=== PATIENT | female | born 1950 | race African-American/Black ===

== ENCOUNTER 2016-08-18 18:38 | Observation (INO) | payer MEDICAID ==
[~2016-08-18] VITALS: Ht 172.7 cm; Wt 68.0 kg
[~2016-08-18 18:38] MED LIST: ALBUAER3 INH; AMLO10TA2 PO; ASPI-110 PO; BENZ2TAB PO; CARV3.125 PO; GABA300C5 PO; GLIP10TA6 PO; HYDR1CAP30 PO; LURA1TAB2 PO; WALKER/ADULT/FO1 MIS
[2016-08-18 18:42] VITALS: BP 202/80; PULSE 85; RESP 20; TEMP 99.3; O2SAT 97
[2016-08-18 18:49] VITALS: O2SAT 95
--- NOTE | 2016-08-18 18:58 | PD ---
HPI Chief Complaint: Fall Time Seen by Provider: 18:44 Travel History International Travel<30 days: No Contact w/Intl Traveler<30days: No Traveled to known affect area: No History of Present Illness HPI 65-year-old female with history of HIV, hepatitis, COPD here with injuries after a fall. Patient is here now for the fifth time this month with closed head injury from a mechanical fall. Patient has frequent falls at home and apparently tripped this evening, hitting her head. EMS note laceration through the left eyebrow. No LOC. Patient denies any headache, nausea vomiting, neck or back pain. States that she just has an unsteady gait. Apparently she has been attempting to get a walker, but has not been able to do so. She denies any chest pain, shortness of breath, urinary symptoms. 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) Headaches: No Hepatitis: Yes ( HEP C) Hiatal Hernia: No Hypertension: Yes Immune Disorder: No Implanted Vascular Access Dvce: No Kidney Stones: No Medical other: Yes ( LIVER DISEASE) Musculoskeletal: Yes Neurologic: No Psychiatric: Yes (Tardive dyskinesia ) Reproductive: No Respiratory: Yes (COPD) Migraines: No Myocardial Infarction: No Radiation Therapy: No Renal Failure: No Seizures: No Sickle Cell Disease: No Sleep Apnea: No Thyroid Disease: No Ulcer: Yes ?: Not Menopausal: Yes : 6 Para: 1 Miscarriage: 5 : 0 Tubal Ligation: Yes Past Surgical History Abdominal Surgery: Yes (ADHESIONS ON BLADDER) AICD: No Appendectomy: No Arteriovenous Shunt: No Cardiac Surgery: No Cholecystectomy: No Coronary Artery Bypass Graft: No Ear Surgery: No Endocrine Surgery: No Eye Surgery: No Genitourinary Surgery: Yes ( URETHRAL DILATATION ) Gynecologic Surgery: Yes (BILATERAL BREASTS) Hysterectomy: No Insulin Pump: No Joint Replacement: No Neurologic Surgery: No Oral Surgery: No Pacemaker: No Thoracic Surgery: No Other Surgery: Yes (SPINAL) Social History Alcohol Use: No Tobacco Use: Yes ( 08/19 ppd) Substance Use: Yes (COCAINE) Allergies-Medications (Allergen,Severity, Reaction): Coded Allergies: HA Inhibitors (Verified Allergy, Severe, 08/18/16) Angioedema Contrast Media (Verified Allergy, Severe, WELTS, 08/18/16) Dye, Prep (Verified Allergy, Severe, HIVES, 08/18/16) IVP DYE Iohexol (OMNIPAQUE) (Verified Allergy, Unknown, NEEDS TO BE PREMEDICATED. , 08/18/16) *MDRO Multi-Drug Resistant Organism (Verified Adverse Reaction, Unknown, ) MRSA, wound (05/01) MRSA PCR Screen negative 12/19/14 and 01/16/15. Cleared per Infection Control Reported Meds & Prescriptions Reported Meds & Active Scripts Active Walker/Adult/Folding (Device) 1 Mis Mis 1 Ea .ROUTE DIRECTED Gabapentin 300 Mg Cap 300 Mg PO TID Coreg (Carvedilol) 3.125 Mg Tab 3.125 Mg PO Q12HR Proair Hfa 8.5 GM Inh (Albuterol Sulfate) 90 Mcg/Act Aer 2 Puff INH Q4-6H PRN 108 mcg/actuation Reported Amlodipine (Amlodipine Besylate) 10 Mg Tab 10 Mg PO DAILY Latuda (Lurasidone) 60 Mg Tab 60 Mg PO HS Benztropine (Benztropine Mesylate) 2 Mg Tab 2 Mg PO HS Hydroxyzine Pamoate 25 Mg Cap 25 Mg PO BID Aspirin 81 (Aspirin) 81 Mg Tabdr 81 Mg PO DAILY Glipizide 10 Mg Tab 10 Mg PO DAILY Take 30 minutes before a meal Review of Systems Except as stated in HPI: all other systems reviewed are Neg Physical Exam Narrative GENERAL: Elderly female in no acute distress SKIN: Warm and dry. HEAD: Superficial laceration to the left eyebrow Normocephalic. EYES: Pupils equal and round. No scleral icterus. No injection or drainage. ENT: No nasal bleeding or discharge. Mucous membranes pink and moist. NECK: Supple CARDIOVASCULAR: Regular rate and rhythm. No murmur appreciated. RESPIRATORY: No accessory muscle use. Clear to auscultation. Breath sounds equal bilaterally. GASTROINTESTINAL: Abdomen soft, non-tender, nondistended. MUSCULOSKELETAL: Moves all extremity's normally. No midline tenderness palpation of the thoracic or lumbar spine NEUROLOGICAL: Awake and alert. Answers questions and follows commands appropriately. Unsteady gait Data Data Last Documented VS Vital Signs Date Time Temp Pulse Resp B/P Pulse Ox O2 Delivery O2 Flow Rate FiO2 08/18/16 18:49 95 Room Air 08/18/16 18:42 99.3 85 20 202/[address] Brain W/O Iv Contrast(Rout) (08/18/16 ) Basic Metabolic Panel (Bmp) (08/18/16 18:46) Complete Blood Count With Diff (08/18/16 18:46) Urinalysis - C+S If Indicated (08/18/16 18:46) Iv Access Insert/Monitor (08/18/16 18:46) Ecg Monitoring (08/18/16 18:46) Oximetry (08/18/16 18:46) Sodium Chloride 0.9% Flush (Ns Flush) (08/18/16 19:00) Cath For Specimen (08/18/16 18:46) MDM Medical Decision Making Medical Screen Exam Complete: Yes Emergency Medical Condition: Yes Medical Record Reviewed: Yes Differential Diagnosis 65-year-old female here for her eighth visit in the last 2 months with injuries from a fall, closed head injury. Patient has had 7 head CTs in the last 2 months due to these injuries. She clearly has chronic unsteady gait, and is not safe to be living in a home situation independently as she is. She describes her fall as mechanical. Differential includes closed head injury, skull fracture, ICH, eyebrow laceration, elect to light abnormality, UTI, failure to thrive, frequent falls. Narrative Course Patient placed on monitor, IV established and blood obtained. CBC, BMP, urinalysis and CT of the brain were ordered. Results remain pending at the time this dictation. Patient signed out to oncoming provider waiting results of same. I spoke with case management. Patient will require admission for physical therapy and likely placement. Diagnosis Primary Impression: Closed head injury Qualified Code: S09.90XA - Closed head injury, initial encounter Additional Impressions: Eyebrow laceration Qualified Code: S01.112A - Eyebrow laceration, left, initial encounter Recurrent falls Unsteady gait Admitting Information Admitting Physician Requests: Admit Alka Brown MD Aug 18, 2016 18:57
[2016-08-18 19:00] VITALS: BP 164/82; PULSE 85; O2SAT 97
[2016-08-18] MEDS ORDERED: SODIUM CHLORIDE 0.9% FLUSH 5 ML FLUSH IVF PRN (19:00)
[2016-08-18 19:28] LABS: AUTOMATED NEUTROPHIL # 6.2 TH/MM3 (1.8-7.7); BASOPHIL # 0.1 TH/MM3 (0-0.2); BASOPHIL % 0.7 % (0.0-2.0); EOSINOPHIL # 0.3 TH/MM3 (0-0.4); EOSINOPHIL % 3.1 % (0.0-4.0); HEMATOCRIT 37.8 % (35.0-46.0); LYMPH % 28.3 % (9.0-44.0); LYMPHOCYTE # 2.9 TH/MM3 (1.0-4.8); MEAN CELL VOLUME 93.8 FL (80.0-100.0); MEAN CORPUSCULAR HEMOGLOBIN 31.7 PG (27.0-34.0); MEAN CORPUSCULAR HGB CONC 33.8 % (32.0-36.0); MONO % 7.1 % (0.0-8.0); NEUT % 60.8 % (16.0-70.0); PLATELET COUNT 262 TH/MM3 (150-450); RED BLOOD COUNT 4.03 MIL/MM3 (4.00-5.30); WHITE BLOOD COUNT 10.2 TH/MM3 (4.0-11.0)
[2016-08-18 19:29] LABS: HEMO FLAGS DIFF FINAL
--- NOTE | 2016-08-18 19:33 | RADRPT ---
EXAM DATE/TIME: 08/18/2016 19:03 [facility] COMPARISON: CT BRAIN W/O CONTRAST, August 15, 2016, 17:04. INDICATIONS : Trauma; fall. Small laceration above left eye. RADIATION DOSE: 38.48 CTDIvol (mGy) MEDICAL HISTORY : Hepatitis C. HIV. SURGICAL HISTORY : None. ENCOUNTER: Initial ACUITY: 1 day PAIN SCALE: 5/10 LOCATION: cranial TECHNIQUE: Multiple contiguous axial images were obtained of the head. Using automated exposure control and adj ustment of the mA and/or kV according to patient size, radiation dose was kept as low as reasonably a chievable to obtain optimal diagnostic quality images. FINDINGS: CEREBRUM: The ventricles are normal for age. 16 mm area of very falcine oval calcification again noted. No evid ence of midline shift, acute mass lesion, hemorrhage or acute infarction. No extra-axial fluid colle ctions are seen. POSTERIOR FOSSA: The cerebellum and brainstem are intact. The 4th ventricle is midline. The cerebellopontine angle i s unremarkable. EXTRACRANIAL: Left frontal scalp contusion and noted. SKULL: The calvaria is intact. No evidence of skull fracture. CONCLUSION: No acute intracranial abnormality. Ramon Villeda MD on August 18, 2016 at 19:30 Board Certified Radiologist. This report was verified electronically.
[2016-08-18 19:46] LABS: BICARBONATE 17.4 MEQ/L (21.0-32.0); POTASSIUM 4.6 MEQ/L (3.5-5.1)
[2016-08-18] MEDS ORDERED: LIDOCAINE 1%/EPINEPHrine 1:100,000 SOLN 20 ML VIAL INFIL ONE (20:00)
--- NOTE | 2016-08-18 20:00 | PD ---
Data Data Last Documented VS Vital Signs Date Time Temp Pulse Resp B/P Pulse Ox O2 Delivery O2 Flow Rate FiO2 08/18/16 19:00 85 164/82 97 Room Air 08/18/16 18:[address] Brain W/O Iv Contrast(Rout) (08/18/16 ) Basic Metabolic Panel (Bmp) (08/18/16 18:46) Complete Blood Count With Diff (08/18/16 18:46) Urinalysis - C+S If Indicated (08/18/16 18:46) Iv Access Insert/Monitor (08/18/16 18:46) Ecg Monitoring (08/18/16 18:46) Oximetry (08/18/16 18:46) Sodium Chloride 0.9% Flush (Ns Flush) (08/18/16 19:00) Cath For Specimen (08/18/16 18:46) Lidocai-Epi 1%-1:100,000 Inj (Xylocaine- (08/18/16 20:00) Admit Order (Ed Use Only) (08/18/16 20:04) Labs Laboratory Tests Test 08/18/16 19:00 White Blood Count 10.2 TH/MM3 Red Blood Count 4.03 MIL/MM3 Hemoglobin 12.8 GM/DL Hematocrit 37.8 % Mean Corpuscular Volume 93.8 FL Mean Corpuscular Hemoglobin 31.7 PG Mean Corpuscular Hemoglobin 33.8 % Concent Red Cell Distribution Width 13.0 % Platelet Count 262 TH/MM3 Mean Platelet Volume 7.9 FL Neutrophils (%) (Auto) 60.8 % Lymphocytes (%) (Auto) 28.3 % Monocytes (%) (Auto) 7.1 % Eosinophils (%) (Auto) 3.1 % Basophils (%) (Auto) 0.7 % Neutrophils # (Auto) 6.2 TH/MM3 Lymphocytes # (Auto) 2.9 TH/MM3 Monocytes # (Auto) 0.7 TH/MM3 Eosinophils # (Auto) 0.3 TH/MM3 Basophils # (Auto) 0.1 TH/MM3 CBC Comment DIFF FINAL Differential Comment Sodium Level 138 MEQ/L Potassium Level 4.6 MEQ/L Chloride Level 112 MEQ/L Carbon Dioxide Level 17.4 MEQ/L Anion Gap 9 MEQ/L Blood Urea Nitrogen 23 MG/DL Creatinine 1.27 MG/DL Estimat Glomerular Filtration 51 ML/MIN Rate Random Glucose 116 MG/DL Calcium Level 10.3 MG/DL [facility] Medical Record Reviewed: Yes Supervised Visit with BHAVESH: No Narrative Course The patient returns to the ER for the 11th time within the last 9 weeks. She has undergone [address]'s and multiple spine CTs. Patient suffers with multiple medical problems including HIV. She lives alone and reports multiple mechanical falls. The patient will require admission for rehabilitation and/or placement. Her bicarb appears slightly lower compared with prior results with remainder of CBC/BMP stable. Laceration repair by JOHNATHON appreciated. D/w Dr Mayo. CBC & BMP Diagram 08/18/16 19:[address]: NO ACUTE INTRACRANIAL BLEED Diagnosis Primary Impression: Closed head injury Qualified Code: S09.90XA - Closed head injury, initial encounter Additional Impressions: Unsteady gait Recurrent falls Eyebrow laceration Qualified Code: S01.112A - Eyebrow laceration, left, initial encounter Admitting Information Admitting Physician Requests: Observation Bartolo Deleon MD Aug 18, 2016 20:00
[2016-08-18] MEDS ORDERED: ACETAMINOPHEN 325 MG TAB PO PRN (20:15)
[2016-08-18] MEDS ORDERED: ONDANSETRON HCL 4 MG/2 ML VIAL IVP PRN (20:15)
[2016-08-18] MEDS ORDERED: SODIUM CHLORIDE 0.9% FLUSH 5 ML FLUSH FLUSH PRN (20:15)
[2016-08-18] MEDS ORDERED: BISACODYL 10 MG SUPP PR PRN (20:15)
--- NOTE | 2016-08-18 20:18 | HHI.HP ---
[facility] No Primary Care Physician Admission Diagnosis Recurrent Falls, CHI, Eye Brow Laceration Diagnoses: (1) Recurrent falls Diagnosis: Principal (2) Eyebrow laceration Diagnosis: Principal (3) UTI (urinary tract infection) Diagnosis: Principal (4) Dehydration Diagnosis: Principal (5) Renal insufficiency Diagnosis: Principal (6) HTN (hypertension) Diagnosis: Principal (7) Bipolar disorder Diagnosis: Principal (8) DM (diabetes mellitus) Diagnosis: Principal (9) Cocaine abuse Diagnosis: Principal (10) Tobacco abuse Diagnosis: Principal Travel History International Travel<30 Days: No Contact w/Intl Traveler <30 Da: No Traveled to Known Affected Are: No History of Present Illness This is a 65-year-old female with a PMH of Anxiety, Depression, HIV, Hepatitis C , COPD, CHF (Echo 11/08/09 w/ EF 55-60%), Cocaine Abuse, Tobacco Abuse and Recurrent Falls who was brought to ER by EMS after fall w/ head injury. Seen in the ER on multiple occasions in the last 2 months for same. Denies LOC or dizziness. No fever, chills, chest pain, nausea, vomiting or diarrhea. On arrival, BP 202/80, HR 85, O2 sat 97% on RA, Temp 99.3. CBC unremarkable. Creatinine 1.27, previously 1.62 on 08/10/16. Calcium 10.3. U/a w/ UTI. CT Head w/ no acute abnormality. +laceration to left eyebrow, s/p repair in ER. Review of Systems Other ROS: 14 point review of systems otherwise negative. Past Family Social History Past Medical History PMH: Anxiety, Depression, HIV, Hepatitis C, COPD, CHF (Echo 11/08/09 w/ EF 55-60 %), Cocaine Abuse, Tobacco Abuse and Recurrent Falls Past Surgical History PAST SURGICAL HISTORY: Urethral Dilatation Allergies: Coded Allergies: HA Inhibitors (Verified Allergy, Severe, 08/18/16) Angioedema Contrast Media (Verified Allergy, Severe, WELTS, 08/18/16) Dye, Prep (Verified Allergy, Severe, HIVES, 08/18/16) IVP DYE Iohexol (OMNIPAQUE) (Verified Allergy, Unknown, NEEDS TO BE PREMEDICATED. , 08/18/16) *MDRO Multi-Drug Resistant Organism (Verified Adverse Reaction, Unknown, ) MRSA, wound (05/01) MRSA PCR Screen negative 12/19/14 and 01/16/15. Cleared per Infection Control Family History PAST FAMILY HISTORY: Reviewed. No h/o DM or CAD Social History PAST SOCIAL HISTORY: Negative for alcohol. Smokes 1/2ppd. Positive for Cocaine Abuse. Physical Exam Vital Signs Vital Signs Date Time Temp Pulse Resp B/P Pulse Ox O2 Delivery O2 Flow Rate FiO2 08/18/16 19:00 85 164/82 97 Room Air 08/18/16 18:49 95 Room Air 08/18/16 18:42 99.3 85 20 202/80 97 Physical Exam PE: GENERAL: Middle-aged black female in no acute distress, appears much older than stated age. HEENT: PERRLA, EOMI. No scleral icterus or conjunctival pallor. No lid lag or facial droop. Left eyelid laceration s/p repair CARDIOVASCULAR: Regular rate and rhythm. No obvious murmurs to auscultation. No chest tenderness to palpation. RESPIRATORY: No obvious rhonchi or wheezing. Clear to auscultation. Breath sounds equal bilaterally. GASTROINTESTINAL: Abdomen soft, non-tender, nondistended. BS normal. MUSCULOSKELETAL: Extremities without clubbing, cyanosis, or edema. No obvious deformities. NEUROLOGICAL: Awake, alert and oriented x4. No focal neurologic deficits. Moving both upper and lower extremities spontaneously. Laboratory Laboratory Tests Test 08/18/16 19:00 White Blood Count 10.2 Red Blood Count 4.03 Hemoglobin 12.8 Hematocrit 37.8 Mean Corpuscular Volume 93.8 Mean Corpuscular Hemoglobin 31.7 Mean Corpuscular Hemoglobin 33.8 Concent Red Cell Distribution Width 13.0 Platelet Count 262 Mean Platelet Volume 7.9 Neutrophils (%) (Auto) 60.8 Lymphocytes (%) (Auto) 28.3 Monocytes (%) (Auto) 7.1 Eosinophils (%) (Auto) 3.1 Basophils (%) (Auto) 0.7 Neutrophils # (Auto) 6.2 Lymphocytes # (Auto) 2.9 Monocytes # (Auto) 0.7 Eosinophils # (Auto) 0.3 Basophils # (Auto) 0.1 CBC Comment DIFF FINAL Differential Comment Sodium Level 138 Potassium Level 4.6 Chloride Level 112 Carbon Dioxide Level 17.4 Anion Gap 9 Blood Urea Nitrogen 23 Creatinine 1.27 Estimat Glomerular Filtration 51 Rate Random Glucose 116 Calcium Level 10.3 Result Diagram: 08/18/16189908/18/161899 Assessment and Plan Problem List: (1) Recurrent falls ICD Code: R29.6 Status: Acute (2) Eyebrow laceration ICD Code: S01.119A Status: Acute (3) UTI (urinary tract infection) ICD Code: N39.0 Status: Acute (4) Dehydration ICD Code: E86.0 Status: Acute (5) Renal insufficiency ICD Code: N28.9 Status: Acute (6) Bipolar disorder ICD Code: 296.80 Status: Chronic (7) DM (diabetes mellitus) ICD Code: E11.9 Status: Acute (8) HTN (hypertension) ICD Code: I10 Status: Acute (9) Tobacco abuse ICD Code: Z72.0 Status: Acute (10) Cocaine abuse ICD Code: F14.10 Status: Acute Assessment and Plan A/P: 1. s/p Fall: Recurrent Falls, multiple ER visits for same in last 2 months. No LOC, +head injury. CT Head w/ no acute findings, images reviewed by me. PT for eval/tx. May need assistance w/ placement. 2. Left Eyebrow Laceration: secondary to fall. S/p repair in ER. 3. UTI: U/a w/ small LE, bacteriuria. Start IV Rocephin, IVF for hydration. 4. Dehydration: secondary to UTI, IVF as above. 5. Renal Insufficiency: Chronic. Creatinine 1.27, previously 1.62 on . IVF, repeat labs in am. 6. Bipolar Disorder: Resume Benztropine and Latuda. 7. DM: Sliding scale w/ Accu-Cheks. Resume home Glipizide. 8. HTN: Uncontrolled. BP 202/95, HR 85 on arrival, currently 170/77, HR 88. Resume home Coreg and Norvasc. 9. Tobacco Abuse: Counselled. Ativan/NicoDerm prn. 10. Cocaine Abuse: Ativan prn. 11. DVT Prophylaxis: SCD/Teds. 12. Social work for d/c planning as needed. 13. Case discussed w/ ER physician at length. Problem Qualifiers (1) Eyebrow laceration: Qualified Code: S01.112A - Eyebrow laceration, left, initial encounter Frances Mayo MD Aug 18, 2016 20:18
--- NOTE | 2016-08-18 20:28 | PD ---
Physical Exam Date Seen by Provider: Aug 18, 2016 Time Seen by Provider: 20:27 Narrative I was asked by Dr. Deleon to repair laceration to the patient's forehead. Please see previous documentation for full history and physical. Data Data Last Documented VS Vital Signs Date Time Temp Pulse Resp B/P Pulse Ox O2 Delivery O2 Flow Rate FiO2 08/18/16 19:00 85 164/82 97 Room Air 08/18/16 18:[address] Brain W/O Iv Contrast(Rout) (08/18/16 ) Basic Metabolic Panel (Bmp) (08/18/16 18:46) Complete Blood Count With Diff (08/18/16 18:46) Urinalysis - C+S If Indicated (08/18/16 18:46) Iv Access Insert/Monitor (08/18/16 18:46) Ecg Monitoring (08/18/16 18:46) Oximetry (08/18/16 18:46) Sodium Chloride 0.9% Flush (Ns Flush) (08/18/16 19:00) Cath For Specimen (08/18/16 18:46) Lidocai-Epi 1%-1:100,000 Inj (Xylocaine- (08/18/16 20:00) Admit Order (Ed Use Only) (08/18/16 20:04) Place In Observation (08/18/16 ) Vital Signs (Adult) Q4H (08/18/16 20:14) Activity Oob With Assistance (08/18/16 20:14) Intake + Output ASHOK.QSHIFT (08/18/16 20:14) Diet 1800 Ada Cons Carb (08/19/16 Breakfast) Sodium Chlor 0.9% 1000 Ml Inj (Ns 1000 M (08/18/16 20:14) Sodium Chloride 0.9% Flush (Ns Flush) (08/18/16 20:15) Sodium Chloride 0.9% Flush (Ns Flush) (08/18/16 21:00) Ondansetron Inj (Zofran Inj) (08/18/16 20:15) Bisacodyl Supp (Dulcolax Supp) (08/18/16 20:15) Comprehensive Metabolic Panel (08/19/16 06:00) Complete Blood Count With Diff (08/19/16 06:00) Pt Request For Service (08/18/16 20:14) Case Management Consult (08/18/16 20:14) Scd Bilateral/Knee High ASHOK.BID (08/18/16 20:14) Abhilash Bilateral/Knee High ASHOK.QSHIFT (08/18/16 20:14) Acetaminophen (Tylenol) (08/18/16 20:15) Amlodipine (Norvasc) (08/19/16 09:00) Benztropine (Cogentin) (08/18/16 21:00) Carvedilol (Coreg) (08/18/16 21:00) Glipizide (Glucotrol) (08/19/16 09:00) Lurasidone (Latuda) (08/18/16 21:00) Labs Laboratory Tests Test 08/18/16 19:00 White Blood Count 10.2 TH/MM3 Red Blood Count 4.03 MIL/MM3 Hemoglobin 12.8 GM/DL Hematocrit 37.8 % Mean Corpuscular Volume 93.8 FL Mean Corpuscular Hemoglobin 31.7 PG Mean Corpuscular Hemoglobin 33.8 % Concent Red Cell Distribution Width 13.0 % Platelet Count 262 TH/MM3 Mean Platelet Volume 7.9 FL Neutrophils (%) (Auto) 60.8 % Lymphocytes (%) (Auto) 28.3 % Monocytes (%) (Auto) 7.1 % Eosinophils (%) (Auto) 3.1 % Basophils (%) (Auto) 0.7 % Neutrophils # (Auto) 6.2 TH/MM3 Lymphocytes # (Auto) 2.9 TH/MM3 Monocytes # (Auto) 0.7 TH/MM3 Eosinophils # (Auto) 0.3 TH/MM3 Basophils # (Auto) 0.1 TH/MM3 CBC Comment DIFF FINAL Differential Comment Sodium Level 138 MEQ/L Potassium Level 4.6 MEQ/L Chloride Level 112 MEQ/L Carbon Dioxide Level 17.4 MEQ/L Anion Gap 9 MEQ/L Blood Urea Nitrogen 23 MG/DL Creatinine 1.27 MG/DL Estimat Glomerular Filtration 51 ML/MIN Rate Random Glucose 116 MG/DL Calcium Level 10.3 MG/DL [facility] Medical Record Reviewed: Yes Supervised Visit with BHAVESH: No Procedures Procedure Narrative LACERATION LOCATION: Forehead LENGTH: 3 cm NUMBER OF STITCHES/AMOS: 6 simple interrupted sutures REPAIR: The area of the laceration was prepped with Betadine and sterilely draped. The laceration was infiltrated with 1% lidocaine with epinephrine. The wound was copiously irrigated and explored without evidence of foreign body, tendon injury or neurovascular injury. The wound was closed using 5-0 Prolene. This was a single layer repair. A sterile dressing was applied. The patient was advised to keep the dressing clean and dry. Patient tolerated the procedure well. Diagnosis Primary Impression: Closed head injury Qualified Code: S09.90XA - Closed head injury, initial encounter Additional Impressions: Unsteady gait Recurrent falls Eyebrow laceration Qualified Code: S01.112A - Eyebrow laceration, left, initial encounter Kenzie Mendoza Aug 18, 2016 20:28
[2016-08-18] MEDS ORDERED: PILL SPLITTER OTHER PRN (20:45)
[2016-08-18] MEDS ORDERED: BENZTROPINE MESYLATE 2 MG TAB PO SCH (21:00)
[2016-08-18] MEDS: SODIUM CHLORIDE 0.9% FLUSH 5 ML FLUSH FLUSH SCH (21:00)
[2016-08-18] MEDS ORDERED: LURASIDONE 40 MG TAB PO SCH (21:00)
[2016-08-18] MEDS ORDERED: SODIUM CHLOR 0.9% 1000 ML INJ 1,000 ML IV SCH (21:00)
[2016-08-18 21:44] LABS: BLOOD, URINE NEG (NEG); COMMENT (UR) CULT NOT INDICATED; CULTURE IF INDICATED CULT NOT INDICATED; GLUCOSE,URINE TRACE mg/dL (NEG); HYALINE CAST, URINE 1 /lpf (RARE); KETONE, URINE NEG (NEG); MUCUS URINE FEW /lpf (OCC); NITRITE,URINE NEG (NEG); PH, URINE 5.5 (5.0-8.5); SQUAMOUS EPITHELIAL CELL URINE 3 /hpf (0-5); URINE COLOR YELLOW (YELLW/STRAW)
[2016-08-18 22:00] VITALS: BP 170/77; PULSE 88; RESP 18; O2SAT 96
[2016-08-18] MEDS: CARVEDILOL 3.125 MG TAB PO SCH (22:11)
[2016-08-18] MEDS ORDERED: cefTRIAXone INJ 1,000 MG in SODIUM CHLORIDE 0.9% INJ 100 ML IV SCH (23:00)
[2016-08-18 23:52] VITALS: BP 177/81; PULSE 79; RESP 20; TEMP 97.4; O2SAT 99
[2016-08-19 01:28] LABS: AMPHETAMINE, URINE NEG (NEG); BARBITURATES, URINE NEG (NEG); COCAINE, URINE NEG (NEG)
[2016-08-19 04:22] VITALS: BP 160/81; PULSE 58; RESP 20; TEMP 97.7; O2SAT 99
[2016-08-19 05:16] LABS: AUTOMATED NEUTROPHIL # 4.3 TH/MM3 (1.8-7.7); BASOPHIL # 0.1 TH/MM3 (0-0.2); EOSINOPHIL # 0.3 TH/MM3 (0-0.4); EOSINOPHIL % 3.7 % (0.0-4.0); HEMATOCRIT 33.9 % (35.0-46.0); HEMO FLAGS DIFF FINAL; LYMPHOCYTE # 3.3 TH/MM3 (1.0-4.8); MEAN CELL VOLUME 93.2 FL (80.0-100.0); MEAN CORPUSCULAR HEMOGLOBIN 31.5 PG (27.0-34.0); MEAN CORPUSCULAR HGB CONC 33.9 % (32.0-36.0); NEUT % 49.3 % (16.0-70.0); PLATELET COUNT 281 TH/MM3 (150-450); RED BLOOD COUNT 3.64 MIL/MM3 (4.00-5.30); RED CELL DISTRIBUTION WIDTH 12.7 % (11.6-17.2); WHITE BLOOD COUNT 8.8 TH/MM3 (4.0-11.0)
[2016-08-19 05:42] LABS: ALKALINE PHOSPHATASE 146 U/L (45-117); ALT (GPT) 63 U/L (10-53); ANION GAP 8 MEQ/L (5-15); AST (GOT) 31 U/L (15-37); BICARBONATE 23.5 MEQ/L (21.0-32.0); BLOOD UREA NITROGEN 22 MG/DL (7-18); CHLORIDE 109 MEQ/L (98-107); GLOMERULAR FILTRATION RATE 55 ML/MIN (>89); SODIUM (NA) 140 MEQ/L (136-145); TOTAL BILIRUBIN ADULT 0.6 MG/DL (0.2-1.0)
[2016-08-19] MEDS: SODIUM CHLORIDE 0.9% FLUSH 5 ML FLUSH FLUSH SCH (08:18)
[2016-08-19 08:35] VITALS: BP 140/80; PULSE 60; RESP 18; TEMP 98.2; O2SAT 95
[2016-08-19] MEDS: CARVEDILOL 3.125 MG TAB PO SCH (09:00)
[2016-08-19] MEDS ORDERED: glipiZIDE 10 MG TAB PO SCH (09:00)
[2016-08-19] MEDS ORDERED: AMOXICILLIN/CLAVULANATE K 875 MG TAB PO SCH (11:00)
--- NOTE | 2016-08-19 11:27 | HHI.PR ---
Subjective Remarks Follow-up for fall. Patient's chief complaint is 2 painful broken teeth and gum pain starting yesterday. She states that she tripped and fell yesterday. She has not been using a walker. She denies doing any home physical therapy. She denies any fevers, chills, cough, cold symptoms. She does report some right knee discomfort from falling, unable to bear weight and walk on it without difficulties. Objective Vitals Vital Signs Date Time Temp Pulse Resp B/P Pulse Ox O2 Delivery O2 Flow Rate FiO2 08/19/16 08:35 98.2 60 18 140/80 95 08/19/16 05:45 18 08/19/16 04:22 97.7 58 20 160/81 99 08/18/16 23:52 97.4 79 20 177/81 99 08/18/16 22:00 88 18 170/77 96 Room Air 08/18/16 19:00 85 164/82 97 Room Air 08/18/16 18:49 95 Room Air 08/18/16 18:42 99.3 85 20 202/80 97 Result Diagram: 08/19/16 0444 08/19/16 0450 Imaging Last Impressions Head CT 08/18/16 0000 Signed Impressions: Service Date/Time: Thursday, August 18, 2016 19:03 - CONCLUSION: No acute intracranial abnormality. Ramon Villeda MD Objective Remarks GENERAL: Well-developed well-nourished. In no acute distress. SKIN: Warm and dry. Left eyelid laceration S/P repair. HEENT: Normocephalic. Pupils equal and round. Poor dentition with bilateral upper gum abscesses. CARDIOVASCULAR: Regular rate and rhythm. No murmur appreciated. RESPIRATORY: No accessory muscle use. Clear to auscultation. Breath sounds equal bilaterally. GASTROINTESTINAL: Abdomen soft, non-tender, nondistended. Bowel sounds x4. MUSCULOSKELETAL: No obvious deformities. No clubbing or cyanosis. No edema. NEUROLOGICAL: Awake and alert. No focal neurological deficits. Moves upper and lower extremities spontaneously. Normal speech. PSYCHIATRIC: Appropriate mood and a bit odd affect; insight and judgment fair to normal. A/P Problem List: (1) Recurrent falls ICD Code: R29.6 Status: Acute (2) Eyebrow laceration ICD Code: S01.119A Status: Acute (3) Dehydration ICD Code: E86.0 Status: Acute (4) Renal insufficiency ICD Code: N28.9 Status: Chronic (5) Bipolar disorder ICD Code: 296.80 Status: Chronic (6) DM (diabetes mellitus) ICD Code: E11.9 Status: Chronic (7) HTN (hypertension) ICD Code: I10 Status: Chronic (8) Tobacco abuse ICD Code: Z72.0 Status: Chronic Assessment and Plan 65-year-old female with a PMH of Anxiety, Depression, HIV, Hepatitis C, COPD, CHF (Echo 11/08/09 w/ EF 55-60%), Cocaine Abuse, Tobacco Abuse and Recurrent Falls who presented after a fall s/p Fall: Recurrent Falls, multiple ER visits for same. No LOC, +head injury. CT Head w/ no acute findings. PT consulted, recommends [facility], case management consulted. Walker ordered. Dental abscess 2: Start Augmentin. Patient instructed to follow up with dentist. Left Eyebrow Laceration: secondary to fall. S/p repair in ED. Local wound care. Abnormal UA: U/a w/ small LE. Received IV Rocephin x1, no further need for antibiotics. Dehydration: Increased chloride and decreased bicarbonate, improved on repeat BMP today with IVF. CKD: Creatinine 1.27, previously 1.62 on 08/10/16. Creatinine currently 1.2 today with IVF. Chronic, stable. Bipolar Disorder: Continue home Benztropine and Latuda. DM: Sliding scale w/ Accu-Cheks. Resume home Glipizide. HTN: Elevated on arrival, currently controlled. Continue home Coreg and Norvasc. Tobacco Abuse: Patient counseling. DVT Prophylaxis: SCD/Teds. Written by Ki Pepper, acting as scribe for Dr. Quinn on 08/19/16 at 11:27. Discharge Planning Discharge patient to home Condition on discharge: Improved Heart healthy diabetic Diet as tolerated Regular activity Rx written: kevin Boyd Follow-up with primary care physician Attending Statement The documentation accurately reflects the work performed [id number] by pr, Dr. Quinn on 08/19/16 at 11:27. Problem Qualifiers (1) Eyebrow laceration: Qualified Code: S01.112A - Eyebrow laceration, left, initial encounter (2) DM (diabetes mellitus): Qualified Code: E11.22 - Type 2 diabetes mellitus with stage 2 chronic kidney disease, without long-term current use of insulin (3) HTN (hypertension): Qualified Code: I10 - Essential hypertension Ki Pepper Aug 19, 2016 11:27 Tono Quinn MD Aug 21, 2016 03:06
[2016-08-19] MEDS ORDERED: GLUCAGON 1 MG/ML VIAL OTHER PRN (11:30)
[2016-08-19] MEDS ORDERED: DEXTROSE 50% IN WATER 50 ML VIAL(D50) IV PUSH PRN (11:30)
--- NOTE | 2016-08-19 11:41 | HHI.FF ---
Face to Face Verification Diagnosis: (1) Hypertension (2) Diabetes (3) Hepatitis C (4) Chronic kidney disease (5) COPD (chronic obstructive pulmonary disease) (6) Eyebrow laceration (7) Bipolar disorder (8) Recurrent falls (9) Dehydration Home Health Nursing Order: Medical education Signs/symptoms of disease process Medication education-adverse effect Wound care and dressing changes Nursing assessment with vital signs In Classroom Tutor Order: To Evaluate: Living conditions/environment, Support services Order: To Provide: Long range planning, Community services I have seen patient Maru Dave on 08/19/16. My clinical findings support the need for the requested home health care services because: Ltd mobility - disease progression Deconditioned w/ increased weakness Med compliance is questionable Limited ability to care for self Need for psychosocial assistance High risk of falls I certify that my clinical findings support that this patient is homebound because: Hx COPD- exertion dyspnea/weakness Unsteady gait/balance Need for psychosocial assistance Ki Pepper Aug 19, 2016 11:41 Ki Pepper Aug 19, 2016 11:41
[2016-08-19] MEDS ORDERED: WALKER/ADULT/FO1 MIS (11:42)
[2016-08-19] MEDS ORDERED: AMOX875T2 PO (11:46)
[2016-08-19 11:47] VITALS: BP 177/75; PULSE 62; RESP 18; TEMP 97.7; O2SAT 99
[2016-08-19] MEDS ORDERED: INSULIN ASPART SUPPLEMENTAL SCALE SQ SCH (16:00)
[2016-09-19] MEDS ORDERED: CALCTAB33 PO (10:08)
[2016-09-19] MEDS ORDERED: LORA10TA PO (10:08)
[2016-09-19] MEDS ORDERED: AMOX875T PO (10:08)
[2016-09-19] MEDS ORDERED: PRED20 PO (10:08)
[2016-09-19] MEDS ORDERED: HYDR25TA5 PO (10:08)
== END 2016-08-19 15:14 | disposition home or self-care (01) ==
LOC: NEPC 18:38 → NEDA 20:06 → NEPHCDU 23:04
PROVIDERS: ADMIT Internal Medicine; ATTEND Internal Medicine
DX: S01.112A Laceration without foreign body of left eyelid and periocular area, initial encounter (principal); S09.90XA Unspecified injury of head, initial encounter; R29.6 Repeated falls; R26.81 Unsteadiness on feet; B20 Human immunodeficiency virus [HIV] disease; J44.9 Chronic obstructive pulmonary disease, unspecified; W01.10XA Fall on same level from slipping, tripping and stumbling with subsequent striking against unspecified object, initial encounter; Z91.81 History of falling; Z79.01 Long term (current) use of anticoagulants; J45.909 Unspecified asthma, uncomplicated; F41.9 Anxiety disorder, unspecified; I13.0 Hypertensive heart and chronic kidney disease with heart failure and stage 1 through stage 4 chronic kidney disease, or unspecified chronic kidney disease; E78.00 Pure hypercholesterolemia, unspecified; E11.22 Type 2 diabetes mellitus with diabetic chronic kidney disease; K21.9 Gastro-esophageal reflux disease without esophagitis; B19.20 Unspecified viral hepatitis C without hepatic coma; G24.01 Drug induced subacute dyskinesia; F17.200 Nicotine dependence, unspecified, uncomplicated; F14.10 Cocaine abuse, uncomplicated; Z79.899 Other long term (current) drug therapy; Z79.84 Long term (current) use of oral hypoglycemic drugs; N39.0 Urinary tract infection, site not specified; E86.0 Dehydration; F31.9 Bipolar disorder, unspecified
CPT/HCPCS: 12013; 70450; 80048; 80053; 80307; 81001; 85025; 97163; 99285; G0378; G8987; G8988; J0696; J7030; P9612

== ENCOUNTER 2016-08-26 11:11 | Emergency (ER) | payer MEDICAID ==
[~2016-08-26] VITALS: Ht 172.7 cm; Wt 69.0 kg
[~2016-08-26 11:11] MED LIST changes: +AMOX875T2 PO
[2016-08-26 11:15] VITALS: BP 128/83; PULSE 101; RESP 12; TEMP 98.1; O2SAT 96
--- NOTE | 2016-08-26 11:48 | PD ---
HPI Chief Complaint: Wound/Suture/Staple Re-Check Time Seen by Provider: 11:44 Travel History International Travel<30 days: No Contact w/Intl Traveler<30days: No Traveled to known affect area: No History of Present Illness HPI Patient comes in requesting suture removal from left eyebrow and submental area that were placed approximately 8 days ago. Patient denies any complaints or concerns with the sutures. Patient reports she's been keeping them clean and dry using soap and water. Denies any other complaints or concerns. 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) Headaches: No Hepatitis: Yes ( HEP C) Hiatal Hernia: No Hypertension: Yes Immune Disorder: No Implanted Vascular Access Dvce: No Kidney Stones: No Musculoskeletal: Yes Neurologic: No Psychiatric: Yes (Tardive dyskinesia ) Reproductive: No Respiratory: Yes Migraines: No Myocardial Infarction: No Radiation Therapy: No Renal Failure: No Seizures: No Sickle Cell Disease: No Sleep Apnea: No Thyroid Disease: No Ulcer: Yes Menopausal: Yes : 6 Para: 1 Miscarriage: 5 : 0 Tubal Ligation: Yes Past Surgical History Abdominal Surgery: Yes (ADHESIONS ON BLADDER) AICD: No Appendectomy: No Arteriovenous Shunt: No Cardiac Surgery: No Cholecystectomy: No Coronary Artery Bypass Graft: No Ear Surgery: No Endocrine Surgery: No Eye Surgery: No Genitourinary Surgery: Yes ( URETHRAL DILATATION ) Gynecologic Surgery: Yes (BILATERAL BREASTS) Hysterectomy: No Insulin Pump: No Joint Replacement: No Neurologic Surgery: No Oral Surgery: No Pacemaker: No Thoracic Surgery: No Other Surgery: Yes (SPINAL) Social History Alcohol Use: No Tobacco Use: Yes ( 1/2 ppd) Substance Use: Yes (smokes crack currently) Allergies-Medications (Allergen,Severity, Reaction): Coded Allergies: HA Inhibitors (Verified Allergy, Severe, 08/26/16) Angioedema Contrast Media (Verified Allergy, Severe, WELTS, 08/26/16) Dye, Prep (Verified Allergy, Severe, HIVES, 08/26/16) IVP DYE Iohexol (OMNIPAQUE) (Verified Allergy, Unknown, NEEDS TO BE PREMEDICATED. , 08/26/16) *MDRO Multi-Drug Resistant Organism (Verified Adverse Reaction, Unknown, ) MRSA, wound (05/01) MRSA PCR Screen negative 12/19/14 and 01/16/15. Cleared per Infection Control Reported Meds & Prescriptions Reported Meds & Active Scripts Active Amoxicillin-Clavulanate 875-125 mg Tab 875 Mg PO Q12HR Walker/Adult/Folding (Device) 1 Mis Mis 1 Ea .ROUTE DIRECTED Gabapentin 300 Mg Cap 300 Mg PO TID Coreg (Carvedilol) 3.125 Mg Tab 3.125 Mg PO Q12HR Proair Hfa 8.5 GM Inh (Albuterol Sulfate) 90 Mcg/Act Aer 2 Puff INH Q4-6H PRN 108 mcg/actuation Reported Amlodipine (Amlodipine Besylate) 10 Mg Tab 10 Mg PO DAILY Latuda (Lurasidone) 60 Mg Tab 60 Mg PO HS Benztropine (Benztropine Mesylate) 2 Mg Tab 2 Mg PO HS Hydroxyzine Pamoate 25 Mg Cap 25 Mg PO BID Aspirin 81 (Aspirin) 81 Mg Tabdr 81 Mg PO DAILY Glipizide 10 Mg Tab 10 Mg PO DAILY Take 30 minutes before a meal Review of Systems Except as stated in HPI: all other systems reviewed are Neg Physical Exam Narrative GENERAL: Well-developed, well nourished, in no acute distress, and non-ill appearing. SKIN: Warm and dry. Sutures noted over left eyebrow on supplemental little dry clean intact. There are no signs of infection. They're afebrile, nontender, without drainage, and nonerythematous HEAD: Atraumatic. Normocephalic. EYES: Pupils equal and round. EOMI. No scleral icterus. No injection or drainage. ENT: No nasal bleeding or discharge. Mucous membranes pink and moist. NECK: Trachea midline. Supple. No nuclear rigidity. RESPIRATORY: No accessory muscle use. No respiratory distress. MUSCULOSKELETAL: No obvious deformities. No clubbing. No cyanosis. No edema. Full range of motion. NEUROLOGICAL: Awake and alert. PSYCHIATRIC: Appropriate mood and affect; insight and judgment normal. Data Data Last Documented VS Vital Signs Date Time Temp Pulse Resp B/P Pulse Ox O2 Delivery O2 Flow Rate FiO2 08/26/16 11:15 98.1 101 12 128/83 96 Room Air MDM Medical Decision Making Medical Screen Exam Complete: Yes Emergency Medical Condition: No Differential Diagnosis Wound check, suture removal, wound infection, other Narrative Course Patient in no obvious distress upon re-evaluation. Patient was asked if they wanted to speak to my attending, which the patient did not wish to do at this time. Any questions/concerns in reference to patient diagnosis/condition discussed and clarified prior to patient's discharge. Instructed patient to return to ED immediately, if symptoms return/worsen. Pt showed understanding of above instructions. Further instructions and recommendations were detailed in discharge paperwork. Pt left without difficulty out of ED at discharge. Procedures Procedure Narrative Verbal consent was obtained. 6 sutures removed from left eyebrow and 2 from the submental. There is no complications. Patient tolerated procedure well. Diagnosis Primary Impression: Visit for suture removal Patient Instructions: General Instructions, Stitches Removal (DC) Additional Instructions: Follow-up with your primary care physician as needed. Return to the emergency department for any emergent concerns. Disposition: 01 DISCHARGE HOME Condition: Stable Marvin Yeung Aug 26, 2016 11:48
[2016-09-19] MEDS ORDERED: AMOX875T PO (10:08)
[2016-09-19] MEDS ORDERED: LORA10TA PO (10:08)
[2016-09-19] MEDS ORDERED: HYDR25TA5 PO (10:08)
[2016-09-19] MEDS ORDERED: CALCTAB33 PO (10:08)
[2016-09-19] MEDS ORDERED: PRED20 PO (10:08)
== END 2016-08-26 12:51 | disposition home or self-care (01) ==
LOC: NEPB 11:11
DX: S09.93XD Unspecified injury of face, subsequent encounter (principal); X58.XXXD Exposure to other specified factors, subsequent encounter; Z48.02 Encounter for removal of sutures
CPT/HCPCS: 99281

== ENCOUNTER 2016-08-29 16:54 | Emergency (ER) | payer MEDICAID ==
[~2016-08-29] VITALS: Ht 172.7 cm; Wt 70.0 kg
[2016-08-29 16:57] VITALS: BP 167/82; PULSE 92; RESP 20; TEMP 98.3; O2SAT 98
[2016-08-29] MEDS ORDERED: ZITHTAB PO (17:18)
--- NOTE | 2016-08-29 17:19 | PD ---
HPI Chief Complaint: ENT Complaint Time Seen by Provider: 17:14 Travel History International Travel<30 days: No Contact w/Intl Traveler<30days: No Traveled to known affect area: No History of Present Illness HPI 65-year-old female presents to the emergency department for evaluation of right ear pain that started 1 week ago. Patient denies any other complaints at this time. She states that she has had ear infections in the past this feels the same. She denies any drainage. No fevers or chills. No other complaints. 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) Headaches: No Hepatitis: Yes ( HEP C) Hiatal Hernia: No Hypertension: Yes Immune Disorder: No Implanted Vascular Access Dvce: No Kidney Stones: No Musculoskeletal: Yes Neurologic: No Psychiatric: Yes (Tardive dyskinesia ) Reproductive: No Respiratory: Yes Migraines: No Myocardial Infarction: No Radiation Therapy: No Renal Failure: No Seizures: No Sickle Cell Disease: No Sleep Apnea: No Thyroid Disease: No Ulcer: Yes Menopausal: Yes : 6 Para: 1 Miscarriage: 5 : 0 Tubal Ligation: Yes Past Surgical History Abdominal Surgery: Yes (ADHESIONS ON BLADDER) AICD: No Appendectomy: No Arteriovenous Shunt: No Cardiac Surgery: No Cholecystectomy: No Coronary Artery Bypass Graft: No Ear Surgery: No Endocrine Surgery: No Eye Surgery: No Genitourinary Surgery: Yes ( URETHRAL DILATATION ) Gynecologic Surgery: Yes (BILATERAL BREASTS) Hysterectomy: No Insulin Pump: No Joint Replacement: No Neurologic Surgery: No Oral Surgery: No Pacemaker: No Thoracic Surgery: No Other Surgery: Yes (SPINAL) Social History Alcohol Use: No Tobacco Use: Yes ( 1/2 ppd) Substance Use: Yes (smokes crack currently) Allergies-Medications (Allergen,Severity, Reaction): Coded Allergies: HA Inhibitors (Verified Allergy, Severe, 08/26/16) Angioedema Contrast Media (Verified Allergy, Severe, WELTS, 08/26/16) Dye, Prep (Verified Allergy, Severe, HIVES, 08/26/16) IVP DYE Iohexol (OMNIPAQUE) (Verified Allergy, Unknown, NEEDS TO BE PREMEDICATED. , 08/26/16) *MDRO Multi-Drug Resistant Organism (Verified Adverse Reaction, Unknown, ) MRSA, wound (05/01) MRSA PCR Screen negative 12/19/14 and 01/16/15. Cleared per Infection Control Reported Meds & Prescriptions Reported Meds & Active Scripts Active Amoxicillin-Clavulanate 875-125 mg Tab 875 Mg PO Q12HR Walker/Adult/Folding (Device) 1 Mis Mis 1 Ea .ROUTE DIRECTED Gabapentin 300 Mg Cap 300 Mg PO TID Coreg (Carvedilol) 3.125 Mg Tab 3.125 Mg PO Q12HR Proair Hfa 8.5 GM Inh (Albuterol Sulfate) 90 Mcg/Act Aer 2 Puff INH Q4-6H PRN 108 mcg/actuation Reported Amlodipine (Amlodipine Besylate) 10 Mg Tab 10 Mg PO DAILY Latuda (Lurasidone) 60 Mg Tab 60 Mg PO HS Benztropine (Benztropine Mesylate) 2 Mg Tab 2 Mg PO HS Hydroxyzine Pamoate 25 Mg Cap 25 Mg PO BID Aspirin 81 (Aspirin) 81 Mg Tabdr 81 Mg PO DAILY Glipizide 10 Mg Tab 10 Mg PO DAILY Take 30 minutes before a meal Review of Systems Except as stated in HPI: all other systems reviewed are Neg Physical Exam Narrative GENERAL: Well-developed well-nourished female patient, afebrile. SKIN: Warm and dry. HEAD: Normocephalic. Atraumatic. ENT: Mucosa pink and moist. No erythema or exudates. No uvular edema. No uvular , palatal, or tonsillar deviation. Airway patent. Nasal turbinates appear normal without nasal blood, purulent drainage or septal hematoma. Right ear canal is with cerumen impaction. This was easily removed with curette. Right tympanic membrane is slightly erythematous. Left tympanic membrane is without erythema or perforation. EYES: No scleral icterus. No injection or drainage. NECK: Supple, trachea midline. No JVD or lymphadenopathy. CARDIOVASCULAR: Regular rate and rhythm without murmurs, gallops, or rubs. RESPIRATORY: Breath sounds equal bilaterally. No accessory muscle use. Lungs sounds clear to auscultation. MUSCULOSKELETAL: No cyanosis, or edema. Data Data Last Documented VS Vital Signs Date Time Temp Pulse Resp B/P Pulse Ox O2 Delivery O2 Flow Rate FiO2 08/29/16 16:57 98.3 92 20 167/82 98 Room Air MDM Medical Decision Making Medical Screen Exam Complete: Yes Emergency Medical Condition: Yes Medical Record Reviewed: Yes Differential Diagnosis Otitis media versus otitis externa versus eustachian tube dysfunction Narrative Course 65-year-old female presents to the emergency department for evaluation of right ear pain for 1 week. Patient will be discharged with a prescription for azithromycin. She is encouraged to follow-up with her primary care physician. She is agreeable. Diagnosis Primary Impression: Otitis media Qualified Code: H66.91 - Right otitis media, unspecified chronicity, unspecified otitis media type Referrals: Primary Care Physician call for appointment Patient Instructions: General Instructions, Otitis Media (ED) Additional Instructions: Take antibiotic as directed until gone. Follow-up with a primary care physician. Return to the emergency department for any acute worsening of symptoms Med/Other Pt SpecificInfo: Prescription(s) given Scripts Azithromycin (Zithromax Z-Ankit)250 Mg Inhu041 Mg PO DIRECTED #1 DSPK Ref 0 500 MG (2 tabs) day 1, then 1 tab days 2-5. Prov:Kenzie Mendoza 08/29/16 Disposition: 01 DISCHARGE HOME Condition: Stable Kenzie Mendoza Aug 29, 2016 17:19
[2016-09-19] MEDS ORDERED: LORA10TA PO (10:08)
[2016-09-19] MEDS ORDERED: AMOX875T PO (10:08)
[2016-09-19] MEDS ORDERED: HYDR25TA5 PO (10:08)
[2016-09-19] MEDS ORDERED: PRED20 PO (10:08)
[2016-09-19] MEDS ORDERED: CALCTAB33 PO (10:08)
== END 2016-08-29 17:40 | disposition home or self-care (01) ==
LOC: NEPB 16:54
DX: H66.91 Otitis media, unspecified, right ear (principal); F17.200 Nicotine dependence, unspecified, uncomplicated
CPT/HCPCS: 99282

== ENCOUNTER 2016-09-08 09:35 | Emergency (ER) | payer MEDICAID ==
[~2016-09-08] VITALS: Ht 172.7 cm; Wt 69.1 kg
[~2016-09-08 09:35] MED LIST changes: +ZITHTAB PO
[2016-09-08 09:37] VITALS: BP 153/88; PULSE 75; RESP 15; TEMP 98.2; O2SAT 98
[2016-09-08] MEDS ORDERED: CORT1SOL RIGHT EAR (10:10)
--- NOTE | 2016-09-08 10:15 | PD ---
HPI Chief Complaint: ENT Complaint Time Seen by Provider: 10:10 Travel History International Travel<30 days: No Contact w/Intl Traveler<30days: No Traveled to known affect area: No History of Present Illness HPI Patient is a 66-year-old female presenting with right ear pain. Present for 3 weeks. She was here 10 days ago and there is slight erythema of the TM noted she was given a prescription for azithromycin which she lost. She states that the pain is intermittent. She states it is worse at night or with touching the ear. She denies otorrhea, hearing loss and tinnitus. She denies fever. She has no other ENT or URI symptoms. 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) Headaches: No Hepatitis: Yes ( HEP C) Hiatal Hernia: No Hypertension: Yes Immune Disorder: No Implanted Vascular Access Dvce: No Kidney Stones: No Musculoskeletal: Yes Neurologic: No Psychiatric: Yes (Tardive dyskinesia ) Reproductive: No Respiratory: Yes Migraines: No Myocardial Infarction: No Radiation Therapy: No Renal Failure: No Seizures: No Sickle Cell Disease: No Sleep Apnea: No Thyroid Disease: No Ulcer: Yes Menopausal: Yes : 6 Para: 1 Miscarriage: 5 : 0 Tubal Ligation: Yes Past Surgical History Abdominal Surgery: Yes (ADHESIONS ON BLADDER) AICD: No Appendectomy: No Arteriovenous Shunt: No Cardiac Surgery: No Cholecystectomy: No Coronary Artery Bypass Graft: No Ear Surgery: No Endocrine Surgery: No Eye Surgery: No Genitourinary Surgery: Yes ( URETHRAL DILATATION ) Gynecologic Surgery: Yes (BILATERAL BREASTS) Hysterectomy: No Insulin Pump: No Joint Replacement: No Neurologic Surgery: No Oral Surgery: No Pacemaker: No Thoracic Surgery: No Other Surgery: Yes (SPINAL) Social History Alcohol Use: No Tobacco Use: Yes ( 08/19 ppd) Substance Use: Yes (smokes crack currently) Allergies-Medications (Allergen,Severity, Reaction): Coded Allergies: HA Inhibitors (Verified Allergy, Severe, 09/08/16) Angioedema Contrast Media (Verified Allergy, Severe, WELTS, 09/08/16) Dye, Prep (Verified Allergy, Severe, HIVES, 09/08/16) IVP DYE Iohexol (OMNIPAQUE) (Verified Allergy, Unknown, NEEDS TO BE PREMEDICATED. , 09/08/16) *MDRO Multi-Drug Resistant Organism (Verified Adverse Reaction, Unknown, ) MRSA, wound (05/01) MRSA PCR Screen negative 12/19/14 and 01/16/15. Cleared per Infection Control Reported Meds & Prescriptions Reported Meds & Active Scripts Active Zithromax Z-Ankit (Azithromycin) 250 Mg Dspk 250 Mg PO DIRECTED 500 MG (2 tabs) day 1, then 1 tab days 2-5. Amoxicillin-Clavulanate 875-125 mg Tab 875 Mg PO Q12HR Walker/Adult/Folding (Device) 1 Mis Mis 1 Ea .ROUTE DIRECTED Gabapentin 300 Mg Cap 300 Mg PO TID Coreg (Carvedilol) 3.125 Mg Tab 3.125 Mg PO Q12HR Proair Hfa 8.5 GM Inh (Albuterol Sulfate) 90 Mcg/Act Aer 2 Puff INH Q4-6H PRN 108 mcg/actuation Reported Amlodipine (Amlodipine Besylate) 10 Mg Tab 10 Mg PO DAILY Latuda (Lurasidone) 60 Mg Tab 60 Mg PO HS Benztropine (Benztropine Mesylate) 2 Mg Tab 2 Mg PO HS Hydroxyzine Pamoate 25 Mg Cap 25 Mg PO BID Aspirin 81 (Aspirin) 81 Mg Tabdr 81 Mg PO DAILY Glipizide 10 Mg Tab 10 Mg PO DAILY Take 30 minutes before a meal Review of Systems General / Constitutional: No: Fever, Chills HENT: Positive: Earache, No: Vertigo, Lightheadedness, Sore Throat, Rhinitis, Congestion, Neck Stiffness, Neck Pain, Ear Discharge Respiratory: No: Cough Hematologic/Lymphatic: No: Lymph Node Enlargement Physical Exam Narrative GENERAL: Well-developed and well-nourished adult female in no acute distress. SKIN: Warm and dry. Good turgor without tenting. HEAD: Normocephalic. EYES: PERRL bilaterally, 4mm. EOMI bilaterally. No injection or icterus present. No proptosis. Lids without edema or erythema. ENT: Right ear canal is mildly edematous with mild erythema. No masses or foreign bodies. No exudate or otorrhea. Positive left ear tug test. Left ear canal is non-edematous/non-erythematous without otorrhea. Bilateral TMs have intact landmarks and without distortion, perforation, air-fluid level or erythema. No mastoid swelling or tenderness. Nasal mucosa pink and moist without discharge, septum intact and midline. Buccal mucosa pink and moist. Oropharynx free of erythema, tonsillar hypertrophy, masses, swelling, asymmetry and exudates. Uvula midline and airway patent. NECK: Supple, no meningeal signs. Trachea midline, no JVD. No cervical or facial lymphadenopathy. CARDIOVASCULAR: Regular rate and rhythm without murmurs, rubs, clicks or gallops. RESPIRATORY: Clear to auscultation bilaterally with symmetrical rise and fall, no distress or use of accessory muscles. NEUROLOGIC: CN II-XII grossly intact. Awake and alert. Motor grossly within normal limits. Normal speech. Data Data Last Documented VS Vital Signs Date Time Temp Pulse Resp B/P Pulse Ox O2 Delivery O2 Flow Rate FiO2 09/08/16 09:37 98.2 75 15 153/88 98 MDM Medical Decision Making Medical Screen Exam Complete: Yes Emergency Medical Condition: Yes Differential Diagnosis Otitis externa versus otitis media versus eustachian tube dysfunction Narrative Course Patient is a 66-year-old female with a three-week history of intermittent right ear pain. She states she diagnosed with otitis media and given a prescription for azithromycin which she lost and did not take. On my exam the TMs are unremarkable. She does have slight edema and erythema of the right ear canal without exudate. She is afebrile and nontoxic-appearing. Patient is given prescription for Cortisporin Otic and recommend follow-up with PCP.See discharge paperwork for further instructions. The plan was discussed with the patient who acknowledged their understanding and agreement. Reinforced the follow-up with primary care is critically important. Patient instructed on emergent conditions that should prompt return to ED. Diagnosis Primary Impression: Otitis externa Qualified Code: H60.501 - Acute otitis externa of right ear, unspecified type Patient Instructions: General Instructions, Otitis Externa (ED) Additional Instructions: Take medication as prescribed Do not place any Q-tips, OTC drops or other products into the ear Avoid getting water in the ear Use cotton in ear while showering and do not swim or submerge head OTC ibuprofen or Tylenol as needed for pain Follow-up with PCP in 2-3 days Return to the ED for any acute worsening of symptoms Med/Other Pt SpecificInfo: Prescription(s) given Scripts Oawqsvov-Cypfawpsa-NK Otic Drops (Cortisporin HC Otic Drops)3.5-10,000-1 Mg- Units-% Soln4 Drop RIGHT EAR QID 7 Days Ref 0 Prov:Cayetano Hoyt MD 09/08/16 Disposition: 01 DISCHARGE HOME Condition: Stable Ramon Yi III Sep 08, 2016 10:15
[2016-09-19] MEDS ORDERED: LORA10TA PO (10:08)
[2016-09-19] MEDS ORDERED: CALCTAB33 PO (10:08)
[2016-09-19] MEDS ORDERED: PRED20 PO (10:08)
[2016-09-19] MEDS ORDERED: AMOX875T PO (10:08)
[2016-09-19] MEDS ORDERED: HYDR25TA5 PO (10:08)
== END 2016-09-08 10:25 | disposition home or self-care (01) ==
LOC: NEPB 09:35
DX: H60.501 Unspecified acute noninfective otitis externa, right ear (principal)
CPT/HCPCS: 99283

== ENCOUNTER 2016-09-11 00:19 | Emergency (ER) | payer MEDICAID ==
[~2016-09-11] VITALS: Ht 172.7 cm; Wt 70.0 kg
[~2016-09-11 00:19] MED LIST changes: +CORT1SOL RIGHT EAR
[2016-09-11 00:27] VITALS: BP 167/87; PULSE 71; RESP 18; TEMP 98.9; O2SAT 98
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
[2016-09-11 01:13] LABS: AUTOMATED NEUTROPHIL # 5.1 TH/MM3 (1.8-7.7); BASOPHIL # 0.1 TH/MM3 (0-0.2); BASOPHIL % 1.3 % (0.0-2.0); EOSINOPHIL # 0.3 TH/MM3 (0-0.4); EOSINOPHIL % 3.6 % (0.0-4.0); HEMATOCRIT 39.2 % (35.0-46.0); HEMO FLAGS DIFF FINAL; LYMPH % 30.9 % (9.0-44.0); LYMPHOCYTE # 2.7 TH/MM3 (1.0-4.8); MEAN CELL VOLUME 91.5 FL (80.0-100.0); MEAN CORPUSCULAR HEMOGLOBIN 31.4 PG (27.0-34.0); MEAN CORPUSCULAR HGB CONC 34.3 % (32.0-36.0); MONO % 6.7 % (0.0-8.0); NEUT % 57.5 % (16.0-70.0); PLATELET COUNT 304 TH/MM3 (150-450); RED BLOOD COUNT 4.29 MIL/MM3 (4.00-5.30); WHITE BLOOD COUNT 8.8 TH/MM3 (4.0-11.0)
[2016-09-11] MEDS ORDERED: ONDANSETRON HCL 4 MG/2 ML VIAL IV PUSH ONE (01:15)
[2016-09-11] MEDS ORDERED: MORPHINE SULFATE 4 MG/ML INJ IV PUSH ONE (01:15)
--- NOTE | 2016-09-11 01:44 | RADRPT ---
EXAM DATE/TIME: 09/11/2016 01:21 [facility] COMPARISON: CT BRAIN W/O CONTRAST, August 18, 2016, 19:03. INDICATIONS : Headaches with right ear pain for 4 weeks. RADIATION DOSE: 36.14 CTDIvol (mGy) MEDICAL HISTORY : Cardiovascular disease. Hypertension. Chronic obstructive pulmonary disease.GERD SURGICAL HISTORY : Tubal ligation. ENCOUNTER: Initial ACUITY: 1 month PAIN SCALE: 6/10 LOCATION: Right cranial ear TECHNIQUE: Multiple contiguous axial images were obtained of the head. Using automated exposure control and adj ustment of the mA and/or kV according to patient size, radiation dose was kept as low as reasonably a chievable to obtain optimal diagnostic quality images. FINDINGS: CEREBRUM: The ventricles are normal for age. No evidence of midline shift, mass lesion, hemorrhage or acute in farction. No extra-axial fluid collections are seen. POSTERIOR FOSSA: The cerebellum and brainstem are intact. The 4th ventricle is midline. The cerebellopontine angle i s unremarkable. EXTRACRANIAL: The visualized portion of the orbits is intact. SKULL: The calvaria is intact. No evidence of skull fracture. CONCLUSION: Normal examination for a patient of this age. No significant change has occurred. Jalil Sloan MD on September 11, 2016 at 1:41 Board Certified Radiologist. This report was verified electronically.
[2016-09-11 01:50] LABS: ALKALINE PHOSPHATASE 142 U/L (45-117); TOTAL BILIRUBIN ADULT 0.8 MG/DL (0.2-1.0)
[2016-09-11 01:51] LABS: ALT (GPT) 27 U/L (10-53); ANION GAP 6 MEQ/L (5-15); AST (GOT) 53 U/L (15-37); BICARBONATE 25.6 MEQ/L (21.0-32.0); BLOOD UREA NITROGEN 23 MG/DL (7-18); CHLORIDE 111 MEQ/L (98-107); GLOMERULAR FILTRATION RATE 67 ML/MIN (>89); POTASSIUM 4.6 MEQ/L (3.5-5.1); SODIUM (NA) 143 MEQ/L (136-145)
--- NOTE | 2016-09-11 02:12 | RADRPT ---
EXAM DATE/TIME: 09/11/2016 01:54 [facility] COMPARISON: No previous studies available for comparison. INDICATIONS : Right knee pain after fall. MEDICAL HISTORY : None. SURGICAL HISTORY : None. ENCOUNTER: Initial ACUITY: 1 day PAIN SCORE: 6/10 LOCATION: Right knee, patellar surface FINDINGS: Two view examination of the right knee demonstrates no evidence of fracture or dislocation. Bony min eralization is normal. The suprapatellar soft tissues have a normal configuration. CONCLUSION: Unremarkable exam for patient's age. Jalil Sloan MD on September 11, 2016 at 2:10 Board Certified Radiologist. This report was verified electronically.
[2016-09-11 03:16] LABS: BLOOD, URINE NEG (NEG); COMMENT (UR) CULT NOT INDICATED; CULTURE IF INDICATED CULT NOT INDICATED; GLUCOSE,URINE NEG (NEG); HYALINE CAST, URINE 1 /lpf (RARE); KETONE, URINE NEG (NEG); MUCUS URINE FEW /lpf (OCC); NITRITE,URINE NEG (NEG); URINE COLOR YELLOW (YELLW/STRAW)
[2016-09-11 03:20] LABS: AMPHETAMINE, URINE NEG (NEG); BARBITURATES, URINE NEG (NEG); COCAINE, URINE NEG (NEG)
[2016-09-11] MEDS ORDERED: ACETAMINOPHEN 325 MG TAB PO ONE (03:45)
[2016-09-11 08:20] VITALS: BP 154/81
[2016-09-19] MEDS ORDERED: LORA10TA PO (10:08)
[2016-09-19] MEDS ORDERED: CALCTAB33 PO (10:08)
[2016-09-19] MEDS ORDERED: HYDR25TA5 PO (10:08)
[2016-09-19] MEDS ORDERED: AMOX875T PO (10:08)
[2016-09-19] MEDS ORDERED: PRED20 PO (10:08)
== END 2016-09-11 09:25 | disposition home or self-care (01) ==
LOC: NEPB 00:19
DX: H92.01 Otalgia, right ear (principal); R51 Headache; M25.561 Pain in right knee; R29.6 Repeated falls; R26.9 Unspecified abnormalities of gait and mobility; I50.9 Heart failure, unspecified; I10 Essential (primary) hypertension; F17.210 Nicotine dependence, cigarettes, uncomplicated; E11.9 Type 2 diabetes mellitus without complications; B20 Human immunodeficiency virus [HIV] disease
CPT/HCPCS: 70450; 73560; 80053; 80307; 81001; 85025; 96374; 96375; 99284; J2270; J2405

== ENCOUNTER 2016-09-23 17:04 | Emergency (ER) | payer MEDICAID ==
[~2016-09-23 17:04] MED LIST changes: +AMOX875T PO; -AMOX875T2 PO; +CALCTAB33 PO; +HYDR25TA5 PO; +LORA10TA PO; +PRED20 PO; -ZITHTAB PO
[2016-09-23 17:46] VITALS: BP 145/74; PULSE 104; RESP 18; TEMP 98.3; O2SAT 99
--- NOTE | 2016-09-23 18:08 | PD ---
HPI Chief Complaint: Head Injury Time Seen by Provider: 18:07 Travel History International Travel<30 days: No Contact w/Intl Traveler<30days: No Traveled to known affect area: No History of Present Illness HPI 66-year-old female with history of chronic falls presents to the ED for evaluation after a mechanical fall today. Patient states that she was using her walker, fell onto her left side. She endorses hitting in her head, denies loss of consciousness. Also complains of left shoulder and left hand pain. Denies numbness, tingling, weakness, limitations to range of motion. Denies recent history of fever, chills, cough, abdominal pain, nausea, vomiting, dysuria, back pain. She endorses compliance with her daily medications. 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) Headaches: No Hepatitis: Yes ( HEP C) Hiatal Hernia: No Hypertension: Yes Immune Disorder: No Implanted Vascular Access Dvce: No Kidney Stones: No Musculoskeletal: Yes Neurologic: No Psychiatric: Yes (Tardive dyskinesia ) Reproductive: No Respiratory: Yes Migraines: No Myocardial Infarction: No Radiation Therapy: No Renal Failure: No Seizures: No Sickle Cell Disease: No Sleep Apnea: No Thyroid Disease: No Ulcer: Yes Menopausal: Yes : 6 Para: 1 Miscarriage: 5 : 0 Tubal Ligation: Yes Past Surgical History Abdominal Surgery: Yes (ADHESIONS ON BLADDER) AICD: No Appendectomy: No Arteriovenous Shunt: No Cardiac Surgery: No Cholecystectomy: No Coronary Artery Bypass Graft: No Ear Surgery: No Endocrine Surgery: No Eye Surgery: No Genitourinary Surgery: Yes ( URETHRAL DILATATION ) Gynecologic Surgery: Yes (BILATERAL BREASTS) Hysterectomy: No Insulin Pump: No Joint Replacement: No Neurologic Surgery: No Oral Surgery: No Pacemaker: No Thoracic Surgery: No Other Surgery: Yes (SPINAL) Social History Alcohol Use: No Tobacco Use: Yes ( 1/2 ppd) Substance Use: Yes (smokes crack currently) Allergies-Medications (Allergen,Severity, Reaction): Coded Allergies: HA Inhibitors (Verified Allergy, Severe, 09/23/16) Angioedema Contrast Media (Verified Allergy, Severe, WELTS, 09/23/16) Dye, Prep (Verified Allergy, Severe, HIVES, 09/23/16) IVP DYE Iohexol (OMNIPAQUE) (Verified Allergy, Unknown, NEEDS TO BE PREMEDICATED. , 09/23/16) *MDRO Multi-Drug Resistant Organism (Verified Adverse Reaction, Unknown, ) MRSA, wound (05/01) MRSA PCR Screen negative 12/19/14 and 01/16/15. Cleared per Infection Control Reported Meds & Prescriptions Reported Meds & Active Scripts Active Cortisporin HC Otic Drops (Pwtkzndm-Zslabkvoe-BU Otic Drops) 3.5-10,000-1 Mg- Units-% Soln 4 Drop RIGHT EAR QID 7 Days Walker/Adult/Folding (Device) 1 Mis Mis 1 Ea .ROUTE DIRECTED Gabapentin 300 Mg Cap 300 Mg PO TID Coreg (Carvedilol) 3.125 Mg Tab 3.125 Mg PO Q12HR Proair Hfa 8.5 GM Inh (Albuterol Sulfate) 90 Mcg/Act Aer 2 Puff INH Q4-6H PRN 108 mcg/actuation Reported Amoxicillin 875 Mg Tab 875 Mg PO BID Hydrochlorothiazide 25 Mg Tab 25 Mg PO DAILY Loratadine 10 Mg Tab 10 Mg PO DAILY Prednisone 20 Mg Tab 20 Mg PO DIRECTED 40 MG twice a day x 3 days, then 20 MG daily x 3 days, then 10 MG daily x 3 days Calcium 600+D Plus Minerals (Calcium Carbonate-Vitamin D W/Minerals) 600-400 Mg- Unit Tab 1 Tab PO BID Amlodipine (Amlodipine Besylate) 10 Mg Tab 10 Mg PO DAILY Latuda (Lurasidone) 60 Mg Tab 60 Mg PO HS Benztropine (Benztropine Mesylate) 2 Mg Tab 2 Mg PO HS Hydroxyzine Pamoate 25 Mg Cap 25 Mg PO BID Aspirin 81 (Aspirin) 81 Mg Tabdr 81 Mg PO DAILY Glipizide 10 Mg Tab 10 Mg PO DAILY Take 30 minutes before a meal Review of Systems Except as stated in HPI: all other systems reviewed are Neg Physical Exam Narrative GENERAL: Well-nourished, well-developed black female in no acute distress. SKIN: Warm and dry. There is a 4 cm stellate laceration just superior to the left eye. Thorough evaluation reveals no other edema, ecchymosis, abrasion, or laceration of the skin. HEAD: Normocephalic. Atraumatic. No raccoon eyes or abel sign. No tenderness to palpation of the skull. No bony step-offs. No malocclusion of the teeth. EYES: No scleral icterus. No injection or drainage. PERRLA. EOMI. ENT: Pearly bowman tympanic membrane is bilaterally. Nasal mucosa is moist. Oropharynx without erythema, edema or exudate. NECK: Supple, trachea midline. No JVD or lymphadenopathy. No midline tenderness to palpation. Patient retains full, active, painless range of motion of the neck. CARDIOVASCULAR: Regular rate and rhythm without murmurs, gallops, or rubs. 2+ DP and radial pulses bilaterally. RESPIRATORY: Breath sounds clear and equal bilaterally. No accessory muscle use. GASTROINTESTINAL: Abdomen soft, non-tender, nondistended. + Bowel sounds MUSCULOSKELETAL: No cyanosis, or edema. Tender to palpation over the left anterior shoulder and the MP joint of the third finger of the right hand. No snuffbox tenderness. No limitations to range of motion of the joints of the upper and lower extremities bilaterally. NEUROLOGICAL: Awake and alert. Cranial nerves II through XII intact. Motor and sensory grossly within normal limits. 5/5 muscle strength in all muscle groups. BACK: Nontender without obvious deformity. No CVA tenderness. No midline tenderness. tenderness. Data Data Last Documented VS Vital Signs Date Time Temp Pulse Resp B/P Pulse Ox O2 Delivery O2 Flow Rate FiO2 09/23/16 17:46 98.3 104 18 145/74 99 Room Air Orders Complete Blood Count With Diff (09/23/16 18:05) Comprehensive Metabolic Panel (09/23/16 18:05) Act Partial Throm Time (Ptt) (09/23/16 18:05) Prothrombin Time / Inr (Pt) (09/23/16 18:05) Urinalysis - C+S If Indicated (09/23/16 18:05) Ct Brain W/O Iv Contrast(Rout) (09/23/16 18:05) Iv Access Insert/Monitor (09/23/16 18:05) Hand, Complete ([id number]) (09/23/16 19:03) Shoulder, Complete (>2vws) (09/23/16 19:03) Lidocai-Epi 1%-1:100,000 Inj (Xylocaine- (09/23/16 19:15) Electrocardiogram (09/23/16 17:25) Labs Laboratory Tests Test 09/23/16 09/23/16 18:36 19:38 White Blood Count 7.6 TH/MM3 Red Blood Count 3.95 MIL/MM3 Hemoglobin 12.3 GM/DL Hematocrit 36.5 % Mean Corpuscular Volume 92.4 FL Mean Corpuscular Hemoglobin 31.1 PG Mean Corpuscular Hemoglobin 33.7 % Concent Red Cell Distribution Width 13.1 % Platelet Count 295 TH/MM3 Mean Platelet Volume 7.7 FL Neutrophils (%) (Auto) 52.4 % Lymphocytes (%) (Auto) 35.0 % Monocytes (%) (Auto) 7.8 % Eosinophils (%) (Auto) 3.2 % Basophils (%) (Auto) 1.6 % Neutrophils # (Auto) 4.0 TH/MM3 Lymphocytes # (Auto) 2.7 TH/MM3 Monocytes # (Auto) 0.6 TH/MM3 Eosinophils # (Auto) 0.2 TH/MM3 Basophils # (Auto) 0.1 TH/MM3 CBC Comment DIFF FINAL Differential Comment Prothrombin Time 10.2 SEC Prothromb Time International 0.9 RATIO Ratio Activated Partial 22.6 SEC Thromboplast Time Sodium Level 140 MEQ/L Potassium Level 4.6 MEQ/L Chloride Level 107 MEQ/L Carbon Dioxide Level 24.0 MEQ/L Anion Gap 9 MEQ/L Blood Urea Nitrogen 28 MG/DL Creatinine 1.19 MG/DL Estimat Glomerular Filtration 55 ML/MIN Rate Random Glucose 97 MG/DL Calcium Level 8.8 MG/DL Total Bilirubin 0.6 MG/DL Aspartate Amino Transf 30 U/L (AST/SGOT) Alanine Aminotransferase 30 U/L (ALT/SGPT) Alkaline Phosphatase 141 U/L Total Protein 6.8 GM/DL Albumin 3.4 GM/DL Urine Color YELLOW Urine Turbidity CLEAR Urine pH 5.5 Urine Specific [place] 1.022 Urine Protein 30 mg/dL Urine Glucose (UA) NEG mg/dL Urine Ketones NEG mg/dL Urine Occult Blood NEG Urine Nitrite NEG Urine Bilirubin NEG Urine Urobilinogen LESS THAN 2.0 MG/DL Urine Leukocyte Esterase TRACE Urine RBC LESS THAN 1 /hpf Urine WBC 1 /hpf Urine Squamous Epithelial 1 /hpf Cells Urine Mucus FEW /lpf Microscopic Urinalysis Comment CULT NOT INDICATED MDM Medical Decision Making Medical Screen Exam Complete: Yes Emergency Medical Condition: Yes Differential Diagnosis Abrasion versus laceration versus skull fracture versus ICH versus humeral fracture versus shoulder dislocation versus other Narrative Course 66-year-old female with history of chronic falls presents to the ED for evaluation after a mechanical fall today. Patient states that she was using her walker, fell onto her left side. She endorses hitting in her head, denies loss of consciousness. Also complains of left shoulder and left hand pain. Denies numbness, tingling, weakness, limitations to range of motion. Denies recent history of fever, chills, cough, abdominal pain, nausea, vomiting, dysuria, back pain. This patient is well-known to me, review of the record reveals that she has been seen in the emergency room 5 times in the last month alone for mechanical falls. Vitals reviewed. Physical exam reveals a laceration over left eyebrow. Tender to palpation of left shoulder and left hand without limitation to ROM or neurovascular compromise. CBC: Unremarkable CMP: Elevated BUN and CR, consistent with patient's baseline. Coags: 0.9 UA: No culture indicated CT of the head: No acute intracranial abnormalities, scalp contusion per radiology read. Shoulder x-ray: No acute findings per radiology read. Hand: No fracture noted, by my read. Laceration repair was performed. Please see my procedure note for details. Patient was instructed to keep the wound clean, dry and covered. Suture removal in 7-10 days. She indicated understanding of the instructions. She is amenable to plan of care. She is stable and discharged home. Procedures Procedure Narrative LACERATION LOCATION: Left eyebrow LENGTH: 4 cm stellate NUMBER OF STITCHES/AMOS: 6 REPAIR: The area of the laceration was prepped with Betadine and sterilely draped. The laceration was infiltrated with 1% lidocaine with epinephrine. The wound was copiously irrigated and explored without evidence of foreign body, tendon injury or neurovascular injury. The wound was closed using 4-0 Prolene. This was a single layer repair. A sterile dressing was applied. The patient was advised to keep the wound clean and dry. Patient tolerated the procedure well. Diagnosis Primary Impression: Accidental fall Qualified Code: W19.XXXA - Accidental fall, initial encounter Additional Impression: Eyebrow laceration Qualified Code: S01.112A - Eyebrow laceration, left, initial encounter Referrals: Primary Care Physician Patient Instructions: General Instructions, Laceration (ED) Additional Instructions: Suture removal in 7-10 days. Keep the wound clean, dry, covered. Monitor for signs of infection such as redness, warmth, discharge, fevers. Follow-up with primary care provider this week. Return to the ED for any urgent or emergent medical condition. Disposition: 01 DISCHARGE HOME Condition: Stable Naomi Saldivar Sep 23, 2016 18:07
--- NOTE | 2016-09-23 18:43 | RADRPT ---
EXAM DATE/TIME: 09/23/2016 18:21 [facility] COMPARISON: No previous studies available for comparison. INDICATIONS : Fall, hit left frontal area tody. RADIATION DOSE: 38.53 CTDIvol (mGy) MEDICAL HISTORY : HIV. Cardiovascular disease Hypertension.Diabetes,hep c SURGICAL HISTORY : adhesion on bladder removed ENCOUNTER: Initial ACUITY: 1 day PAIN SCALE: 10/10 LOCATION: Right TECHNIQUE: Multiple contiguous axial images were obtained of the head. Using automated exposure control and adj ustment of the mA and/or kV according to patient size, radiation dose was kept as low as reasonably a chievable to obtain optimal diagnostic quality images. FINDINGS: CEREBRUM: The ventricles are normal for age. No evidence of midline shift, mass lesion, hemorrhage or acute in farction. No extra-axial fluid collections are seen. POSTERIOR FOSSA: The cerebellum and brainstem are intact. The 4th ventricle is midline. The cerebellopontine angle i s unremarkable. EXTRACRANIAL: The visualized portion of the orbits is intact. SKULL: The calvaria is intact. No evidence of skull fracture. CONCLUSION: 1. No acute intracranial abnormalities. Left frontal scalp hematoma. Richard Uribe MD on September 23, 2016 at 18:40 Board Certified Radiologist. This report was verified electronically.
[2016-09-23 18:52] LABS: BASOPHIL # 0.1 TH/MM3 (0-0.2); BASOPHIL % 1.6 % (0.0-2.0); EOSINOPHIL # 0.2 TH/MM3 (0-0.4); EOSINOPHIL % 3.2 % (0.0-4.0); HEMATOCRIT 36.5 % (35.0-46.0); HEMO FLAGS DIFF FINAL; LYMPHOCYTE # 2.7 TH/MM3 (1.0-4.8); MEAN CELL VOLUME 92.4 FL (80.0-100.0); MEAN CORPUSCULAR HEMOGLOBIN 31.1 PG (27.0-34.0); MEAN CORPUSCULAR HGB CONC 33.7 % (32.0-36.0); MONO % 7.8 % (0.0-8.0); NEUT % 52.4 % (16.0-70.0); PLATELET COUNT 295 TH/MM3 (150-450); RED BLOOD COUNT 3.95 MIL/MM3 (4.00-5.30); RED CELL DISTRIBUTION WIDTH 13.1 % (11.6-17.2); WHITE BLOOD COUNT 7.6 TH/MM3 (4.0-11.0)
[2016-09-23 19:08] LABS: APTT (PATIENT) 22.6 SEC (24.3-30.1); INTERNATIONAL NORMALIZED RATIO 0.9 RATIO; PROTHROMBIN TIME - PATIENT 10.2 SEC (9.8-11.6)
[2016-09-23] MEDS ORDERED: LIDOCAINE 1%/EPINEPHrine 1:100,000 SOLN 20 ML VIAL INFIL ONE (19:15)
[2016-09-23 19:24] LABS: ALKALINE PHOSPHATASE 141 U/L (45-117); ALT (GPT) 30 U/L (10-53); ANION GAP 9 MEQ/L (5-15); AST (GOT) 30 U/L (15-37); BLOOD UREA NITROGEN 28 MG/DL (7-18); CHLORIDE 107 MEQ/L (98-107); GLOMERULAR FILTRATION RATE 55 ML/MIN (>89); POTASSIUM 4.6 MEQ/L (3.5-5.1); SODIUM (NA) 140 MEQ/L (136-145); TOTAL BILIRUBIN ADULT 0.6 MG/DL (0.2-1.0)
[2016-09-23 20:19] LABS: BLOOD, URINE NEG (NEG); COMMENT (UR) CULT NOT INDICATED; CULTURE IF INDICATED CULT NOT INDICATED; GLUCOSE,URINE NEG (NEG); KETONE, URINE NEG (NEG); MUCUS URINE FEW /lpf (OCC); NITRITE,URINE NEG (NEG); PH, URINE 5.5 (5.0-8.5); SQUAMOUS EPITHELIAL CELL URINE 1 /hpf (0-5); URINE COLOR YELLOW (YELLW/STRAW)
--- NOTE | 2016-09-23 20:51 | RADRPT ---
EXAM DATE/TIME: 09/23/2016 19:49 [facility] COMPARISON: No previous studies available for comparison. INDICATIONS : Fall. Left shoulder pain. MEDICAL HISTORY : HIV Cardiovascular disease. Hypertension. Diabetes. Hepatitis C. SURGICAL HISTORY : adhesion on bladder removed ENCOUNTER: Initial ACUITY: 1 day PAIN SCORE: 5/10 LOCATION: Left shoulder FINDINGS: Multiple view examination of the left shoulder demonstrates no evidence of fracture or dislocation. The glenohumeral and acromioclavicular joints are maintained. There is normal range of motion betwee n internal and external rotation. Bony mineralization is normal. CONCLUSION: 1. No acute findings. 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 Richard Uribe MD on September 23, 2016 at 20:49 Board Certified Radiologist. This report was verified electronically.
--- NOTE | 2016-09-23 21:29 | RADRPT ---
EXAM DATE/TIME: 09/23/2016 20:00 [facility] COMPARISON: No previous studies available for comparison. INDICATIONS : Fall. Left hand pain. MEDICAL HISTORY : HIV Cardiovascular disease. Hypertension. Diabetes. Hepatitis C. SURGICAL HISTORY : adhesion on bladder removed ENCOUNTER: Initial ACUITY: 1 day PAIN SCORE: 5/10 LOCATION: Left hand FINDINGS: There is a mildly displaced fracture of the distal phalanx of the fifth finger. No other fractures id entified. No dislocation. CONCLUSION: 1. Mildly displaced fracture distal phalanx left fifth finger. Richard Uribe MD on September 23, 2016 at 21:26 Board Certified Radiologist. This report was verified electronically.
--- NOTE | 2016-09-24 17:44 | EKG ---
Date Performed: 09/23/2016 Time Performed: 17:25:56 PTAGE: 66 years EKG: Sinus rhythm WITH SINUS ARRHYTHMIA POSSIBLE LEFT ATRIAL ENLARGEMENT POSSIBLE LEFT VENTRICULAR HYPERTROPHY Since p revious tracing, no significant change noted ABNORMAL ECG PREVIOUS TRACING : 08/10/2016 21.22 DOCTOR: Dimitrios Larsen Interpretating Date/Time 09/24/2016 17:43:26
== END 2016-09-23 21:38 | disposition home or self-care (01) ==
LOC: NEDAMB 17:04
DX: S01.112A Laceration without foreign body of left eyelid and periocular area, initial encounter (principal); W01.0XXA Fall on same level from slipping, tripping and stumbling without subsequent striking against object, initial encounter; E78.00 Pure hypercholesterolemia, unspecified; E11.9 Type 2 diabetes mellitus without complications; B19.20 Unspecified viral hepatitis C without hepatic coma; I10 Essential (primary) hypertension; B20 Human immunodeficiency virus [HIV] disease; F41.8 Other specified anxiety disorders; M19.90 Unspecified osteoarthritis, unspecified site; I50.9 Heart failure, unspecified; Z91.81 History of falling; Y93.9 Activity, unspecified; Y92.9 Unspecified place or not applicable; Y99.9 Unspecified external cause status; F17.210 Nicotine dependence, cigarettes, uncomplicated; F14.20 Cocaine dependence, uncomplicated
CPT/HCPCS: 12013; 70450; 73030; 73130; 80053; 81001; 85025; 85610; 85730; 93005